=== PATIENT | female | born 1985 | race Caucasian/White ===

== ENCOUNTER 2021-01-17 13:16 | Emergency (ER) | payer OTHER ==
[~2021-01-17] VITALS: Ht 172.7 cm; Wt 75.0 kg
[2021-01-17] VITALS (9 sets, daily range): BP systolic 114–133; BP diastolic 50–77
[2021-01-17] MEDS ORDERED: HYDROcodone/acetaminophen 5mg/325mg tablet PO ONE ×2 (15:20→20:25)
[2021-01-17 16:43] LABS: ALBUMIN 3.2 G/DL (3.4-5.0); ANION GAP 7 (8-16); BLOOD UREA NITROGEN 16 MG/DL (7-18); BUN/CREATININE RATIO 14.8 (6.6-38.0); CALCIUM 8.4 MG/DL (8.5-10.1); CHLORIDE 105 MMOL/L (99-107); CREATININE 1.08 MG/DL (0.40-0.90); GLUCOSE 86 MG/DL (70-104); POTASSIUM 4.1 MMOL/L (3.5-5.1); SODIUM 139 MMOL/L (135-145); TOTAL CARBON DIOXIDE 26.7 MMOL/L (24-32); eGFR 57 ML/MIN
[2021-01-17 16:55] LABS: BASOPHILS % (AUTO) 0.6 % (0-1); EOSINOPHILS # (AUTO) 0.1 X10'3 (0-0.9); EOSINOPHILS % (AUTO) 1.2 % (0-6); HEMATOCRIT 37.1 % (35.0-45.0); HEMOGLOBIN 12.4 g/dl (12.0-16.0); LYMPHOCYTES # (AUTO) 1.3 X10'3 (1.1-4.8); LYMPHOCYTES % (AUTO) 16.9 % (21-51); MEAN CORPUSCULAR HEMOGLOBIN 30.1 PG (27.0-31.0); MEAN CORPUSCULAR HGB CONC 33.4 g/dL (33.0-36.5); MEAN PLATELET VOLUME 8.2 FL (7.4-10.4); MONOCYTES # (AUTO) 0.3 X10'3 (0-0.9); MONOCYTES % (AUTO) 4.3 % (2-12); PLATELET COUNT 313 X10'3 (140-440); RED BLOOD COUNT 4.12 X10'6 (4.20-5.60); RED CELL DISTRIBUTION WIDTH 13.7 % (11.5-14.5); WHITE BLOOD COUNT 7.8 X10'3 (4.5-11.0)
[2021-01-17] MEDS ORDERED: morphine 2 MG/ML inj. syringe IV PRN ×2 (17:00→18:45)
[2021-01-17] MEDS ORDERED: meperidine/PF 25mg/ml syringe IV PRN ×6 (17:00→18:45)
[2021-01-17] MEDS ORDERED: morphine 4 MG/ML inj SYRINge IV PRN ×2 (17:00→18:45)
[2021-01-17] MEDS ORDERED: ringers solution, lacted 1,000 ML IV SCH ×2 (17:00→18:45)
[2021-01-17] MEDS ORDERED: ondansetron/PF 4mg/2ml inj IV PRN ×2 (17:00→18:45)
[2021-01-17] MEDS ORDERED: proCHLORperazine 10 MG/2 ml inj IV PRN ×2 (17:00→18:45)
[2021-01-17] MEDS ORDERED: BUPIVAcaine/PF 2.5 mg/ml (0.25%) 30ml vial ONE (17:21)
[2021-01-17] MEDS ORDERED: sevoflurane 250ml liquid IH ONE (17:30)
[2021-01-17] MEDS ORDERED: LIDOcaine 1%/PF 5ML 10 MG/ML VIAL ONE (17:30)
[2021-01-17] MEDS ORDERED: propofol 10mg/ml 20ml vial IV ONE (17:30)
[2021-01-17] MEDS ORDERED: MIDAZolam 1 MG/ML 5ML VIAL ONE (17:36)
[2021-01-17] MEDS ORDERED: fentaNYL/PF 50MCG/1 ML 2ML syringe ONE (17:36)
[2021-01-17] MEDS ORDERED: ROPIVAcaine 0.5% (5mg/ml) 30ml vial ONE (17:37)
[2021-01-17] MEDS ORDERED: dexamethasone sod phosphate 4mg/ml inj. ONE (17:37)
[2021-01-17] MEDS ORDERED: clindamycin phosphate 150mg/ml inj. ONE (18:33)
[2021-01-17] MEDS ORDERED: ROPIVAcaine 0.2% (10 MG/5 ML) BOLUS INJECTION INTERSCALE PRN (18:45)
[2021-01-17] MEDS ORDERED: ROPIVAcaine 0.2%/PF PUMP/bolus 545 ML INTERSCALE SCH (18:45)
[2021-01-17] MEDS ORDERED: ondansetron/PF 4mg/2ml inj ONE (19:10)
--- NOTE | 2021-01-17 19:37 | NUR ---
Received from OR via , accompanied by Anesthesiologist DR NORIEGA and report given by Anesthesiolgist. PT IS SLEEPING, NOT MOVING EXT OR WAKING TO VOICE. SKIN WARM AND PINK, NO C/O PAIN, ISLAND DRESSING IS CD ON RIGHT CLAVICLE, COLD POWDER PACK IN PLACE, VSS.
--- NOTE | 2021-01-17 19:59 | NUR ---
PT IS AWAKE AND MOVING EXT X 4. RIGHT UE IS SOMEWHAT NUMB TO TOUCH. NO PAIN BUT DEMEROL GIVEN FOR POST OP SHIVERS.
--- NOTE | 2021-01-17 20:55 | NUR ---
PT MEETS DISCHARGE CRITERIA. PT IS AWAKE, ARDEN WATER AND CRACKERS. NORCO GIVEN PRIOR TO DISCHARGE FOR PAIN CONTROL, MIN PAIN 2/10 AT DISCHARGE, ON Q PUMP IN PLACE AND SET TO 4, MOTHER AND FATHER INSTRUCTED IN USE AND GIVEN WRITTEN MATERIALS FOR USE AND REMOVAL. IS SENT HOME WITH PT, INSTRUCTED IN USE AND INSTRUCTION PAMPHLET GIVEN. VSS, IV REMOVED, TAKEN HOME IN PRIVATE VEHICLE AND TAKEN OUT VIA W/C.
== END 2021-01-17 20:55 | disposition home or self-care (01) ==
LOC: ER 13:17 → PACU 13:17 → ER 20:55
DX: S42.021A Displaced fracture of shaft of right clavicle, initial encounter for closed fracture (principal); Z20.822 Contact with and (suspected) exposure to COVID-19; Z88.0 Allergy status to penicillin; Z91.018 Allergy to other foods; Z91.010 Allergy to peanuts; W19.XXXA Unspecified fall, initial encounter; Z91.81 History of falling; Y93.89 Activity, other specified; Y92.89 Other specified places as the place of occurrence of the external cause; Y99.8 Other external cause status
CPT/HCPCS: 23515; 36415; 73000; 76000; 80048; 85025; 85610; 87635; 99285; C1713; C9803; J1100; J2175; J2250; J2405; J2704; J2795; J3010; J3490; 96374; 96375; A4215; A4565; A4618; A7000